=== PATIENT | male | born 1950 | race Caucasian/White ===

== ENCOUNTER 2017-03-20 10:38 | Emergency (ER) | payer MEDICARE, MEDICAID ==
--- NOTE | 2017-03-20 11:03 | EDM.PDOC ---
ED HPI GENERAL MEDICAL PROBLEM - General Chief Complaint: Gastrointestinal Problem Stated Complaint: POSS BOWEL OBSTRUCTION Time Seen by Provider: 03/20/17 11:00 Source of Information: Reports: Patient History Limitations: Reports: No Limitations - History of Present Illness INITIAL COMMENTS - FREE TEXT/NARRATIVE: Patient is a 67-year-old male who presents ED complaining of being constipated with dull achy abdominal discomfort. States approximately one month ago he was evaluated by a dentist and had 4 teeth pulled. He was placed on clindamycin. A few days after that patient was diagnosed with C. difficile and was placed on Flagyl. He completed a course of Flagyl and was feeling pretty good for about one week. States over the past week he's been eating more solid foods and notes that there has been no diarrhea. Feels that he may be constipated. He feels that there is a large lump within the abdomen and is fearful that he will have a large stool that needs to be forced out. Denies any nausea/vomiting, fever/ chills, chest pain, shortness of breath, dysuria, dizziness, or any additional complaints. Abdominal Pain Score (Numeric/FACES): 5 - Related Data Allergies Allergy/AdvReac Type Severity Reaction Status Date / Time lanolin alcohols Allergy Other Verified 03/20/17 10:48 Home Meds: Home Meds Cholecalciferol (Vitamin D3) [Vitamin D3] 2,000 units PO DAILY 03/13/15 [History ] Hydrocortisone [Hydrocortisone 2.5% Crm] 1 applic TOP BID PRN 03/13/15 [History] Ketoconazole 120 ml TP DAILY PRN 05/24/15 [History] L.acidoph,Paracasei, B.lactis [Probiotic] 1 each PO DAILY 05/24/15 [History] Lisinopril 10 mg PO DAILY 05/24/15 [History] No's Apple Cider Vinegar 1 tsp PO DAILY 03/20/17 [History] Etodolac 200 mg PO DAILY 03/20/17 [History] Lutein 2 mg PO DAILY 03/20/17 [History] Multivitamin with Minerals [Multiple Vitamin] 1 tab PO DAILY 03/20/17 [History] Tamsulosin [Flomax] 0.4 mg PO DAILY 03/20/17 [History] metroNIDAZOLE [Flagyl] 500 mg PO Q8H #42 tablet 03/20/17 [Rx] Past Medical History - Past Health History Medical/Surgical History: Denies Medical/Surgical History Other HEENT History: partial Other Gastrointestinal History: hyperplastic colon polyp, ventral hernia Other Genitourinary History: weakened stream Other Musculoskeletal History: R ankle pain Other Dermatologic History: seborraic dermatitis Social & Family History - Tobacco Use Smoking Status *Q: Former Smoker Years of Tobacco use: 5 Packs/Tins Daily: 0.5 Used Tobacco, but Quit: Yes Month Tobacco Last Used: 2009 Second Hand Smoke Exposure: No - Alcohol Use Days Per Week of Alcohol Use: 1 Number of Drinks Per Day: 1 Total Drinks Per Week: 1 - Recreational Drug Use Recreational Drug Use: Yes Drug Use in Last 12 Months: Yes Recreational Drug Type: Reports: Marijuana/Hashish Recreational Drug Use Frequency: Not Used In Over 1 Year ED ROS GENERAL - Review of Systems Review Of Systems: ROS reveals no pertinent complaints other than HPI. ED EXAM, GI/ABD - Physical Exam Exam: See Below Exam Limited By: No Limitations General Appearance: Alert, WD/WN, No Apparent Distress Ears: Normal External Exam, Hearing Grossly Normal Nose: Normal Inspection Throat/Mouth: Normal Inspection, Normal Oropharynx, Normal Voice, No Airway Compromise Head: Atraumatic, Normocephalic Neck: Normal Inspection, Supple, Non-Tender Respiratory/Chest: No Respiratory Distress, Lungs Clear, Normal Breath Sounds, No Accessory Muscle Use, Chest Non-Tender Cardiovascular: Normal Peripheral Pulses, Regular Rate, Rhythm GI/Abdominal Exam: Normal Bowel Sounds, Soft, No Organomegaly, No Distention, Tender (To suprapubic region.) Back Exam: Normal Inspection Extremities: Normal Inspection Neurological: Alert, Oriented, CN II-XII Intact, Normal Cognition, No Motor/ Sensory Deficits Psychiatric: Normal Affect, Normal Mood Skin Exam: Warm, Dry, Intact, Normal Color Course - Vital Signs Last Recorded V/S: Last Vital Signs Temp 97.9 F 03/20/17 10:48 Pulse 87 03/20/17 15:35 Resp 15 03/20/17 15:35 BP 130/87 03/20/17 15:35 Pulse Ox 96 03/20/17 15:35 - Orders/Labs/Meds Orders: Active Orders 24 hr Category Date Time Status Peripheral IV Care [RC] . DIRECTED Care 03/20/17 11:29 Active Abdomen 2V AP Flat Upright [CR] Stat Exams 03/20/17 11:20 Taken Sodium Chloride 0.9% [Normal Saline] 1,000 ml Med 03/20/17 13:15 Active IV ASDIRECTED Sodium Chloride 0.9% [Saline Flush] Med 03/20/17 11:29 Active 10 ml FLUSH ASDIRECTED PRN Peripheral IV Insertion Adult [OM.PC] Stat Oth 03/20/17 11:29 Ordered Medication Orders Sodium Chloride (Normal Saline) 1,000 mls @ 250 mls/hr IV ASDIRECTED ADINA Last Admin: 03/20/17 13:44 Dose: 250 mls/hr Sodium Chloride (Saline Flush) 10 ml FLUSH ASDIRECTED PRN PRN Reason: Keep Vein Open Last Admin: 03/20/17 13:30 Dose: 10 ml Admin: 03/20/17 12:51 Dose: 10 ml Labs: Laboratory Tests 03/20/17 03/20/17 03/20/17 Range/Units 10:53 11:23 14:35 WBC 10.50 H (4.23-9.07) K/mm3 RBC 4.92 (4.63-6.08) M/mm3 Hgb 15.1 (13.7-17.5) gm/L Hct 44.4 (40.1-51.0) % MCV 90.2 (79.0-92.2) fl MCH 30.7 (25.7-32.2) pg MCHC 34.0 (32.2-35.5) g/dl RDW Std Deviation 43.0 (35.1-43.9) fL Plt Count 331 (163-337) K/mm3 MPV 9.0 L (9.4-12.3) fl Neut % (Auto) 68.7 H (34.0-67.9) % Lymph % (Auto) 20.1 L (21.8-53.1) % [place] % (Auto) 7.9 (5.3-12.2) % Eos % (Auto) 2.7 (0.8-7.0) Baso % (Auto) 0.3 (0.1-1.2) % Neut # (Auto) 7.22 H (1.78-5.38) K/mm3 Lymph # (Auto) 2.11 (1.32-3.57) K/mm3 [place] # (Auto) 0.83 H (0.30-0.82) K/mm3 Eos # (Auto) 0.28 (0.04-0.54) K/mm3 Baso # (Auto) 0.03 (0.01-0.08) K/mm3 Sodium 138 (136-145) mEq/L Potassium 3.6 (3.5-5.1) mEq/L Chloride 103 (98-107) mEq/L Carbon Dioxide 22 (21-32) mEq/L Anion Gap 16.6 H (5-15) BUN 11 (7-18) mg/dL Creatinine 0.9 (0.7-1.3) mg/dL Est Cr Clr Drug Dosing 81.11 mL/min Estimated GFR (MDRD) > 60 (>60) mL/min BUN/Creatinine Ratio 12.2 L (14-18) Glucose 109 (80-115) mg/dL Calcium 9.3 (8.5-10.1) mg/dL Total Bilirubin 0.7 (0.2-1.0) mg/dL AST 23 (15-37) U/L ALT 30 (16-63) U/L Alkaline Phosphatase 61 (46-116) U/L C-Reactive Protein 8.8 H* (<1.0) mg/dL Total Protein 7.3 (6.4-8.2) g/dl Albumin 3.1 L (3.4-5.0) g/dl Globulin 4.2 gm/dL Albumin/Globulin Ratio 0.7 L (1-2) Lipase 87 (73-393) U/L Urine Color Yellow (Yellow) Urine Appearance Clear (Clear) Urine pH 6.0 (5.0-8.0) Ur Specific [place] 1.010 (1.005-1.030) Urine Protein Negative (Negative) Urine Glucose (UA) Negative (Negative) Urine Ketones Trace H (Negative) Urine Occult Blood Trace-intact H (Negative) Urine Nitrite Negative (Negative) Urine Bilirubin Negative (Negative) Urine Urobilinogen 0.2 (0.2-1.0) Ur Leukocyte Esterase Negative (Negative) Urine RBC 0-5 (0-5) /hpf Urine WBC 0-5 (0-5) /hpf Ur Epithelial Cells 0-5 (0-5) /hpf Urine Bacteria Occasional (FEW) /hpf Urine Mucus Not seen (FEW) /hpf Meds: Medications Generic Name Dose Route Start Last Admin Trade Name Freq PRN Reason Stop Dose Admin Sodium Chloride 1,000 mls @ 250 mls/hr 03/20/17 13:15 03/20/17 13:44 Normal Saline IV 250 mls/hr ASDIRECTED ADINA Administration Sodium Chloride 10 ml 03/20/17 11:29 03/20/17 13:30 Saline Flush FLUSH 10 ml ASDIRECTED PRN Administration Keep Vein Open Discontinued Medications Generic Name Dose Route Start Last Admin Trade Name Freq PRN Reason Stop Dose Admin Diatrizoate Meglum/Diatrizoate Sod 90 ml 03/20/17 12:11 03/20/17 13:30 Gastrografin 37% PO 03/20/17 12:12 90 ml ONETIME ONE Administration Iopamidol 125 ml 03/20/17 12:11 03/20/17 13:30 Isovue-300 (61%) IVPUSH 03/20/17 12:12 125 ml ONETIME ONE Administration Metronidazole 500 mg 03/20/17 15:09 03/20/17 15:26 Flagyl PO 03/20/17 15:10 500 mg ONETIME ONE Administration - Re-Assessments/Exams Free Text/Narrative Re-Assessment/Exam: IV will be established. Initial labs and studies include CBC, chem 14, CRP, lipase, and UA. Two-view of the abdomen will be obtained as well. If able stool WBCs will be obtained. 03/20/17 12:07 Labs reviewed: White blood cell count 10.50, hemoglobin 15.1, neutrophil percentage 68.7, neutrophil number is 7.22, sodium 138, potassium 3.6 , AG 16.6, creatinine 0.9, glucose 109, LFTs within normal limits, CRP 8.8, lipase 87. Two view of the abdomen revealed nonspecific air and stool pattern. No signs of obstruction. Ordered CT of the abdomen and pelvis with oral and IV contrast. In addition will start IV fluids. 03/20/17 15:03 CT the abdomen and pelvis impression: Diffuse bowel wall thickening throughout the colon. Findings are compatible with nonspecific colitis. Nursing staff, stool sample provided with findings consistent with C. difficile. Ordered Flagyl 500 mg by mouth. We'll discharge patient home with instructions for C. difficile with a second round of Flagyl 500 mg 3 times a day for [address] Rutledge and he concurs this is appropriate treatment. UA revealed trace blood and ketones. Departure - Departure Time of Disposition: 15:11 Disposition: Home, Self-Care 01 Preliminary Cause of *Q: Cardiac Arrest Condition: Good Clinical Impression: Diarrhea, Abdominal pain, Clostridium difficile colitis - Discharge Information Prescriptions: metroNIDAZOLE [Flagyl] 500 mg PO Q8H #42 tablet Instructions: Abdominal Pain, Adult, [id number], Diarrhea, Adult, Easy-to- Read Referrals: Shantelle Ozuna PA-C [Primary Care Provider] - Forms: ED Department Discharge Additional Instructions: As discussed CT the abdomen and pelvis did reveal diffuse bowel wall thickening throughout the colon. Findings are consistent for nonspecific colitis. With your diagnosis of C. difficile recently this is most likely Clostridium difficile colitis. Treatment is Flagyl 500 mg 3 times a day for 14 days. Duration of antibiotics treatment will be longer since you did not have resolution of the C. difficile the first go around with Flagyl. Thereafter would require oral vancomycin. Suggest continue use of a probiotic. Push the fluids. Eat a bland diet. Follow-up with PCP at conclusion of therapy to ensure resolution. Return to ED for any new or worsening symptoms. - My Orders Last 24 Hours: My Active Orders 03/20/17 11:20 Abdomen 2V AP Flat Upright [CR] Stat 03/20/17 11:29 Peripheral IV Care [RC] . DIRECTED Sodium Chloride 0.9% [Saline Flush] 10 ml FLUSH ASDIRECTED PRN Peripheral IV Insertion Adult [OM.PC] Stat 03/20/17 13:15 Sodium Chloride 0.9% [Normal Saline] 1,000 ml IV ASDIRECTED - Assessment/Plan Last 24 Hours: My Active Orders 03/20/17 11:20 Abdomen 2V AP Flat Upright [CR] Stat 03/20/17 11:29 Peripheral IV Care [RC] . DIRECTED Sodium Chloride 0.9% [Saline Flush] 10 ml FLUSH ASDIRECTED PRN Peripheral IV Insertion Adult [OM.PC] Stat 03/20/17 13:15 Sodium Chloride 0.9% [Normal Saline] 1,000 ml IV ASDIRECTED
[2017-03-20] MEDS ORDERED: Diatrizoate Meglumine/Diatrizoate Sodium 37% 120 ML Bottle PO ONE (12:11)
[2017-03-20] MEDS ORDERED: Iopamidol 612 MG/ML 150 ML Bottle IVPUSH ONE (12:11)
[2017-03-20] MEDS: Sodium Chloride 0.9% 10 ML Syringe FLUSH PRN ×2 (12:51→13:30)
[2017-03-20] MEDS ORDERED: Sodium Chloride 0.9% 1,000 ML IV SCH (13:15)
--- NOTE | 2017-03-20 14:17 | CT ---
CT abdomen and pelvis Technique: Multiple axial sections were obtained from above the dome of the diaphragm inferiorly through the pubic symphysis. Intravenous and oral contrast was utilized. Delayed images were obtained through the bladder. Findings: Bowel wall thickening noted throughout the colon. Findings are compatible with nonspecific colitis. Visualized lung bases shows nothing acute. Liver shows no focal parenchymal abnormality. Moderately large hiatal hernia is seen. Spleen appears within normal limits. Adrenal glands show no nodule. Kidneys show symmetric contrast enhancement without hydronephrosis or mass. Pancreas is within normal limits. Aorta shows atherosclerotic change which continues into the iliac vessels. No retroperitoneal adenopathy or mesenteric abnormalities are seen. No pelvic mass or adenopathy is seen. Delayed images shows contrast within the distal ureters and within the bladder. Bone window settings were reviewed which shows scattered degenerative change within the spine with severe disc space narrowing noted of L1-2, L2-3 and L3-4 with lesser disc space narrowing at L4-5. All these discs show vacuum phenomena. Impression: 1. Diffuse bowel wall thickening throughout the colon. Findings are compatible with nonspecific colitis. 2. Other incidental findings as noted above. Diagnostic code #3
[2017-03-20] MEDS ORDERED: metroNIDAZOLE 500 MG Tab PO ONE (15:09)
[2017-03-20 15:48] VITALS: BP 130/87
--- NOTE | 2017-03-23 08:21 | CR ---
Abdomen: Supine and upright views of the abdomen were obtained. Comparison: No prior abdominal x-ray. Scoliosis and degenerative change are noted within the spine. Bowel gas pattern is normal. No free air is seen. Minimal vascular calcification is seen. Impression: 1. Incidental findings. Nothing acute is appreciated. Diagnostic code #2
== END 2017-03-20 15:40 | disposition home or self-care (01) ==
LOC: JD.ED 10:38
DX: A04.7 Enterocolitis due to Clostridium difficile (principal); Z79.899 Other long term (current) drug therapy; Z87.891 Personal history of nicotine dependence
CPT/HCPCS: 36415; 74020; 74177; 80053; 81001; 83690; 85025; 86140; 89055; 96360; 96361; 99285; A9270; J7040; J7050; Q9963; Q9967; 99284

== ENCOUNTER 2021-08-19 12:40 | Inpatient (IN) | payer MEDICARE, MEDICAID ==
[2021-08-19] MEDS ORDERED: Sodium Chloride 0.9% 500 ML IV ONE ×3 (13:15→13:57)
[2021-08-19] MEDS ORDERED: Ondansetron 4 MG/2 ML SDV ONE (13:25)
[2021-08-19] MEDS ORDERED: Ondansetron 4 MG/2 ML SDV IVPUSH ONE (13:33)
[2021-08-19] MEDS ORDERED: Lactated Ringers 500 ML IV ONE ×2 (14:36→19:42)
[2021-08-19] MEDS ORDERED: Lactated Ringers 1,000 ML IV ONE (15:05)
[2021-08-19] MEDS ORDERED: Lactated Ringers 1,000 ML IV SCH (15:45)
[2021-08-19] MEDS ORDERED: Piperacillin/Tazobactam 4.5 GM in Sodium Chloride 0.9% 100 ML IV ONE (16:25)
[2021-08-19] MEDS: Lactated Ringers 1,000 ML IV SCH ×2 (16:37→21:21)
[2021-08-19] MEDS ORDERED: Albuterol 0.083% 2.5 MG/3 ML Neb Soln NEB PRN (20:37)
[2021-08-19] MEDS ORDERED: Ondansetron 4 MG/2 ML SDV IV PRN (20:37)
[2021-08-19] MEDS ORDERED: Acetaminophen 325 MG Tab PO PRN (20:37)
[2021-08-19] MEDS ORDERED: Pantoprazole 40 MG Vial IVPUSH ONE (20:44)
[2021-08-19] MEDS ORDERED: Magnesium Sulfate/Water 4 GM in Premix Bag 1 BAG IV ONE (21:36)
[2021-08-19] MEDS: Insulin Lispro 100 Unit/ML 3 ML KwikPen SUBCUT SCH (22:19)
[2021-08-20 06:36] LABS: HEMOGLOBIN A1C 5.9 %
[2021-08-20] MEDS: Insulin Lispro 100 Unit/ML 3 ML KwikPen SUBCUT SCH ×4 (06:51→21:40)
[2021-08-20] MEDS: Pantoprazole 40 MG Vial IVPUSH SCH ×2 (08:31→20:14)
[2021-08-20] MEDS: Lactated Ringers 1,000 ML IV SCH ×2 (08:33→16:22)
[2021-08-20] MEDS ORDERED: Midazolam 1 MG/ML 2 ML SDV ONE (13:59)
[2021-08-20] MEDS ORDERED: fentaNYL 100 MCG/2 ML SDV ONE (13:59)
[2021-08-20] MEDS ORDERED: Propofol 200 MG/20 ML SDV ONE (14:09)
[2021-08-20] MEDS ORDERED: Lidocaine 1% 2 ML ONE (14:12)
[2021-08-20] MEDS ORDERED: Lidocaine 1% 4 ML ONE (14:12)
[2021-08-21] MEDS: Lactated Ringers 1,000 ML IV SCH (01:12)
[2021-08-21] MEDS: Insulin Lispro 100 Unit/ML 3 ML KwikPen SUBCUT SCH ×4 (06:06→21:59)
[2021-08-21] MEDS: Pantoprazole 40 MG Vial IVPUSH SCH (08:10)
[2021-08-21] MEDS: Pantoprazole 40 MG Tab.CR PO SCH (16:09)
[2021-08-21] MEDS: Ticagrelor 90 MG Tab PO SCH (20:43)
[2021-08-22] MEDS: Pantoprazole 40 MG Tab.CR PO SCH (05:52)
[2021-08-22] MEDS: Insulin Lispro 100 Unit/ML 3 ML KwikPen SUBCUT SCH ×2 (06:29→11:33)
[2021-08-22] MEDS: Ticagrelor 90 MG Tab PO SCH (08:28)
[2021-08-22] MEDS ORDERED: Aspirin 81 MG Tab.EC PO SCH (09:00)
[2021-08-22] MEDS ORDERED: Metoprolol Tartrate 25 MG Tab PO ONE (11:45)
[2021-08-22 12:23] VITALS: BP 110/83
[2021-08-22 12:24] VITALS: PULSE 91
== END 2021-08-22 14:13 | disposition home or self-care (01) | DRG 377 ==
LOC: JD.ED 12:40 → JD.ICU 18:19
PROVIDERS: ADMIT Family Medicine; ATTEND Family Medicine
PROC: 0DJ08ZZ Inspection of Upper Intestinal Tract, Via Natural or Artificial Opening Endoscopic (ICD-10-PCS; principal; 2021-08-20)
DX: A41.9 Sepsis, unspecified organism (principal); R11.2 Nausea with vomiting, unspecified; R19.7 Diarrhea, unspecified; K25.4 Chronic or unspecified gastric ulcer with hemorrhage; R57.1 Hypovolemic shock; D62 Acute posthemorrhagic anemia; K29.71 Gastritis, unspecified, with bleeding; K29.81 Duodenitis with bleeding; E88.81 Metabolic syndrome and other insulin resistance; I25.10 Atherosclerotic heart disease of native coronary artery without angina pectoris; K25.9 Gastric ulcer, unspecified as acute or chronic, without hemorrhage or perforation; I95.9 Hypotension, unspecified; Z20.822 Contact with and (suspected) exposure to COVID-19; K44.9 Diaphragmatic hernia without obstruction or gangrene; M19.90 Unspecified osteoarthritis, unspecified site; I10 Essential (primary) hypertension; N42.9 Disorder of prostate, unspecified; Z79.01 Long term (current) use of anticoagulants; Z95.5 Presence of coronary angioplasty implant and graft; Z88.1 Allergy status to other antibiotic agents; Z87.19 Personal history of other diseases of the digestive system; Z79.84 Long term (current) use of oral hypoglycemic drugs; Z79.82 Long term (current) use of aspirin; Z79.899 Other long term (current) drug therapy
CPT/HCPCS: 36415; 71045; 80053; 81003; 83605 ×2; 84484; 85025; 85610; 85730; 87040 ×2; 93005; 96365; 96375; 99285; J2405; J2543; J7030 ×3; J7120 ×4; U0002; 00731; 36430; 80048; 82270; 82947; 83036; 83735; 85014; 85018; 86850; 86900; 86901; 86922; 99100; A9270-GY; C9113; J2250; J2704; J3010; J3475; J7050; P9016

== ENCOUNTER 2022-07-19 22:49 | Emergency (ER) | payer MEDICARE, MEDICAID ==
[2022-07-19] MEDS ORDERED: Atropine 0.1 MG/ML 10 ML Syringe ONE (23:22)
[2022-07-19] MEDS ORDERED: Sodium Chloride 0.9% 10 ML Syringe FLUSH PRN (23:37)
[2022-07-20 00:05] LABS: ESTIMATED GFR 58 mL/min (>60)
[2022-07-20] MEDS ORDERED: DOPamine/Dextrose 5%-Water 400 MG/250 ML BAG IV SCH (00:15)
[2022-07-20] MEDS ORDERED: Iopamidol 755 Mg/ML 100 ML Bottle IVPUSH ONE (00:17)
[2022-07-20] MEDS ORDERED: Sodium Chloride 0.9% 10 ML Syringe FLUSH ONE (00:17)
[2022-07-20] MEDS ORDERED: Sodium Chloride 0.9% 100 ML IV SCH (00:30)
[2022-07-20] MEDS ORDERED: Ondansetron 4 MG/2 ML SDV ONE (01:22)
[2022-07-20] MEDS ORDERED: Magnesium Sulfate (4.06 MEQ/ML) 1 GM/2 ML SDV IM ONE (01:49)
[2022-07-20] MEDS ORDERED: Magnesium Sulfate (4.06 MEQ/ML) 5 GM/10 ML SDV IV STA (02:05)
[2022-07-20] MEDS: Magnesium Sulfate/Water 50 ML ONE ×2 (02:07→07:08)
[2022-07-20 02:30] LABS: CORONAVIRUS COVID-19 NAA NEGATIVE (NEGATIVE)
[2022-07-20 05:16] VITALS: BP 72/50; PULSE 24
== END 2022-07-20 02:10 ==
LOC: JD.ED 22:49
DX: S09.90XA Unspecified injury of head, initial encounter (principal); R07.2 Precordial pain; R55 Syncope and collapse; I44.2 Atrioventricular block, complete; I25.10 Atherosclerotic heart disease of native coronary artery without angina pectoris; I10 Essential (primary) hypertension; Z95.5 Presence of coronary angioplasty implant and graft; Z88.1 Allergy status to other antibiotic agents; Z79.82 Long term (current) use of aspirin; Z79.02 Long term (current) use of antithrombotics/antiplatelets; Z79.84 Long term (current) use of oral hypoglycemic drugs; Z79.899 Other long term (current) drug therapy; Z20.822 Contact with and (suspected) exposure to COVID-19; W18.09XA Striking against other object with subsequent fall, initial encounter
CPT/HCPCS: 0240U; 36415; 70450; 71045; 71275; 80053; 83735; 83880; 84484; 85025; 85379; 85610; 85730; 93005; 96365; 96375; 99285; J0461; J1265; J2405; J3475; J3490; Q9967

== ENCOUNTER 2022-08-02 15:18 | Emergency (ER) | payer MEDICARE, MEDICAID ==
[2022-08-02 15:42] VITALS: BP 135/102; PULSE 104
[2022-08-02] MEDS ORDERED: Levofloxacin 500 MG Tab PO ONE (18:09)
== END 2022-08-02 18:22 | disposition home or self-care (01) ==
LOC: JD.ED 15:18
DX: N45.1 Epididymitis (principal); I25.10 Atherosclerotic heart disease of native coronary artery without angina pectoris; I10 Essential (primary) hypertension; Z88.1 Allergy status to other antibiotic agents; Z79.899 Other long term (current) drug therapy; Z79.82 Long term (current) use of aspirin; Z79.84 Long term (current) use of oral hypoglycemic drugs
CPT/HCPCS: 76870; 93975; 99284; A9270; 99283

== ENCOUNTER 2024-08-18 07:43 | Day surgery (SDC) | payer MEDICARE, MEDICAID ==
[~2024-08-18 07:43] MED LIST: Sodium Chloride 0.9% 10 ML Syringe FLUSH PRN; Sodium Chloride 0.9% 10 ML Syringe FLUSH SCH
[2024-08-18] MEDS: Lactated Ringers 1,000 ML IV SCH (08:25)
[2024-08-18] MEDS ORDERED: Propofol 200 MG/20 ML SDV ONE ×2 (08:41→09:09)
[2024-08-18] MEDS ORDERED: Lidocaine 1% 4 ML ONE (08:41)
[2024-08-18 10:18] VITALS: BP 129/85; PULSE 72
== END 2024-08-18 10:15 | disposition home or self-care (01) ==
LOC: JD.SDS 07:43
PROVIDERS: ATTEND Surgery
DX: Z12.11 Encounter for screening for malignant neoplasm of colon (principal); D12.3 Benign neoplasm of transverse colon; D12.4 Benign neoplasm of descending colon; D12.5 Benign neoplasm of sigmoid colon; D12.8 Benign neoplasm of rectum; I25.10 Atherosclerotic heart disease of native coronary artery without angina pectoris; I10 Essential (primary) hypertension; E11.9 Type 2 diabetes mellitus without complications; N40.0 Benign prostatic hyperplasia without lower urinary tract symptoms; K21.9 Gastro-esophageal reflux disease without esophagitis; E78.00 Pure hypercholesterolemia, unspecified; Z79.84 Long term (current) use of oral hypoglycemic drugs; Z79.899 Other long term (current) drug therapy; Z88.1 Allergy status to other antibiotic agents; Z88.8 Allergy status to other drugs, medicaments and biological substances
CPT/HCPCS: 45385; 88305; J2704; J7120; 00811; 99100